=== PATIENT | male | born 1945 | race Two or more races ===

== ENCOUNTER 2018-07-02 18:09 | Observation (INO) | payer OTHER ==
[2018-07-02 19:11] LABS: Absolute Lymphocytes (CBC) 1.3 K/uL (0.7-4.9); Absolute Monocytes 0.9 K/uL (0.1-1.3); Absolute Neutrophil 6.1 K/uL (1.8-8.0); Basophils % 0.1 % (0-1.3); Eosinophils % 0.5 % (0-4.4); Hematocrit 35.5 % (39.6-49.0); Lymphocytes % 15.5 % (15.3-44.8); MPV 6.3 fL (7.6-11.3); Monocytes % 10.8 % (3.3-12.3); RBC Red Blood Cell Count 3.92 M/uL (4.33-5.43)
[2018-07-02] MEDS ORDERED: NA CHLORIDE 0.9% 1,000 ML ONE (19:11)
[2018-07-02] MEDS ORDERED: FAMOTIDINE 20 MG/2 ML VIAL IV ONE (19:11)
[2018-07-02] MEDS ORDERED: ONDANSETRON 4 MG/2 ML VIAL ONE ×2 (19:11→20:46)
[2018-07-02 19:12] LABS: Protime INR 1.02
[2018-07-02 19:26] LABS: ALT/SGPT 24 U/L (12-78); AST/SGOT 25 U/L (15-37); Albumin 4.2 g/dL (3.4-5.0); Alkaline Phosphatase 67 U/L (45-117); BUN Blood Urea Nitrogen 13 mg/dL (7-18); Bicarbonate 22 mmol/L (21-32); Bilirubin Direct 0.2 mg/dL (0-0.2); Bilirubin Total 0.7 mg/dL (0.2-1.0); Glucose Level 152 mg/dL (74-106); Lipase 235 U/L (73-393); Magnesium 2.1 mg/dL (1.8-2.4); NT PRO-BNP 457 pg/mL (<125); Potassium 3.6 mmol/L (3.5-5.1); Protein, Total 7.9 g/dL (6.4-8.2); Sodium Level 121 mmol/L (136-145); Troponin (Emerg Dept Use Only) < 0.02 ng/mL (0.0-0.045)
--- NOTE | 2018-07-02 19:36 | RAD REPORT ---
EXAM DESCRIPTION: Vasile Single View07/02/2018 7:17 pm CLINICAL HISTORY: Chest pain COMPARISON: 2016 FINDINGS: The lungs appear clear of acute infiltrate. The heart is normal size IMPRESSION: No acute abnormalities displayed
--- NOTE | 2018-07-02 20:35 | RAD REPORT ---
EXAM DESCRIPTION: CT - Abdomen Pelvis W Contrast - 07/02/2018 8:12 pm CLINICAL HISTORY: Abdominal pain with vomiting COMPARISON: none. TECHNIQUE: Computed axial tomography of the abdomen pelvis was obtained. 100 cc Isovue-300 was admin istered intravenously. Oral contrast was not requested which limits evaluation of bowel. All CT scans are performed using dose optimization technique as appropriate and may include automated exposure control or mA/KV adjustment according to patient size. FINDINGS: The liver, spleen, pancreas, adrenal and kidneys appear unremarkable. There is no evidence of diverticulitis. The appendix is normal. Spondylosis involves the lumbar spine resulting in spinal stenosis Several gallstones are present. The gallbladder wall does not appear thickened. The bladder is distended . 5 x 1 centimeter fluid collection is present within the iliopsoas muscle IMPRESSION: Cholelithiasis without evidence cholecystitis Bladder distention 5 x 1 centimeter fluid collection within the iliopsoas may represent bursitis.
--- NOTE | 2018-07-02 20:55 | EDPHYS ---
Physician Documentation [facility] Name: Williams Leung Age: 72 yrs Sex: Male : 1945 Arrival Date: 07/02/2018 Time: 18:13 Bed 28 Private MD: Harman Maher R ED Physician Ron Burk HPI: 07/02 18:55 This 72 yrs old Male presents to ER via Unassigned with complaints of Vomiting, cp Weakness. 18:55 The patient presents to the emergency department with vomiting, that is intermittent, 5 cp times today. Onset: The symptoms/episode began/occurred today. Possible causes: started after taking oral [place] for pain. Associated signs and symptoms: Pertinent negatives: abdominal pain, constipation, diarrhea, fever, GI bleeding, chest pain. Severity of symptoms: in the emergency department the symptoms are unchanged despite home interventions. Historical: - Allergies: 18:47 No Known Allergies; rv - Home Meds: 18:47 atorvastatin 20 mg oral tab 1 tab once daily [Active]; metformin 500 mg Oral tab 1 tab rv 2 times per day [Active]; lisinopril 5 mg Oral tab 1 tab once daily [Active]; - PMHx: 18:47 Hypertension; Diabetes - NIDDM; rv - PSHx: 18:47 LEFT KNEE SURGERY; rv - Immunization history:: Adult Immunizations up to date, Flu vaccine is up to date. - Social history:: Smoking status: unknown. - Ebola Screening: : Patient negative for fever greater than or equal to 101.5 degrees Fahrenheit, and additional compatible Ebola Virus Disease symptoms Patient denies exposure to infectious person Patient denies travel to an Ebola-affected area in the 21 days before illness onset. ROS: 19:00 Constitutional: Positive for poor PO intake, Negative for body aches, chills, fever. cp 19:00 Eyes: Negative for injury, pain, redness, and discharge. cp 19:00 ENT: Negative for drainage from ear(s), ear pain, sore throat, difficulty swallowing, difficulty handling secretions. 19:00 Cardiovascular: Negative for chest pain, edema, palpitations. 19:00 Respiratory: Negative for cough, shortness of breath, wheezing. 19:00 Abdomen/GI: Positive for nausea and vomiting, Negative for abdominal pain, diarrhea, constipation, anorexia, black/tarry stool, rectal bleeding. 19:00 Back: Negative for radiated pain. 19:00 : Negative for urinary symptoms. 19:00 Skin: Negative for cellulitis, rash. 19:00 Neuro: Negative for altered mental status, dizziness, headache, weakness. 19:00 All other systems are negative. Exam: 19:10 Constitutional: The patient appears in no acute distress, alert, awake, cp non-diaphoretic, non-toxic, well developed, well nourished, uncomfortable. 19:10 Head/Face: Normocephalic, atraumatic. Eyes: Pupils equal round and reactive to light, cp extra-ocular motions intact. Lids and lashes normal. Conjunctiva and sclera are non-icteric and not injected. Cornea within normal limits. Periorbital areas with no swelling, redness, or edema. 19:10 ENT: External ear(s): are unremarkable, Ear canal(s): are normal, clear, TM's: dullness, bilaterally, Nose: is normal, Mouth: Lips: dry, Oral mucosa: moist, Posterior pharynx: is normal, airway is patent, no erythema, no exudate, Voice: is normal. 19:10 Chest/axilla: Inspection: normal, Palpation: is normal, no crepitus, no tenderness. 19:10 Cardiovascular: Rate: normal, Rhythm: regular, Edema: is not appreciated, JVD: is not appreciated. 19:10 Respiratory: the patient does not display signs of respiratory distress, Respirations: normal, no use of accessory muscles, no retractions, no splinting, no tachypnea, labored breathing, is not present, Breath sounds: are clear throughout, no decreased breath sounds, no stridor, no wheezing. 19:10 Abdomen/GI: Inspection: abdomen appears normal, Bowel sounds: active, all quadrants, Palpation: abdomen is soft and non-tender, in all quadrants, rebound tenderness, is not appreciated, voluntary guarding, is not appreciated, involuntary guarding, is not appreciated. 19:10 Back: pain, that is moderate, ROM is normal. 19:10 Skin: cellulitis, is not appreciated, no rash present. 19:40 ECG was reviewed by the Attending Physician. Vital Signs: 18:47 BP 172 / 86; Pulse 76; Resp 17; Pulse Ox 100% ; Weight 72.57 kg (R); rv 22:07 BP 165 / 78; Pulse 83; Resp 18; Pulse Ox 100% on R/A; rv MDM: 18:28 Patient medically screened. cp 19:00 Differential diagnosis: gastritis, cholecystitis, pancreatitis, appendicitis, viral cp gastroenteritis, gastroenteritis. 20:50 Physician consultation: Harman Maher MD was called at 20:55, was contacted at 20:55, cp regarding admission, to the telemetry unit. patient's condition. 20:50 Data reviewed: vital signs, nurses notes. cp 07/02 18:50 Order name: Basic Metabolic Panel; Complete Time: 19:41 cp 07/02 19:41 Interpretation: Normal except: NA 121; CL 88; GLUC 152; GFR 87. cp 07/02 18:50 Order name: CBC with Diff; Complete Time: 19:41 cp 07/02 19:42 Interpretation: Normal except: RBC 3.92; HGB 12.5; HCT 35.5; MPV 6.3. cp 07/02 18:50 Order name: LFT's; Complete Time: 19:41 cp 07/02 19:43 Interpretation: Normal except: GLOB 3.7. cp 07/02 18:50 Order name: Magnesium; Complete Time: 19:41 cp 07/02 18:50 Order name: NT PRO-BNP; Complete Time: 19:41 cp 07/02 18:50 Order name: PT-INR; Complete Time: 19:41 cp 07/02 18:50 Order name: Troponin (emerg Dept Use Only); Complete Time: 19:41 cp 07/02 18:51 Order name: Lipase; Complete Time: 19:41 cp 07/02 20:35 Order name: Urine Dipstick--Ancillary (enter results) ar5 07/02 20:44 Order name: Glucose, Ancillary Testing; Complete Time: 20:48 EDCO 07/02 20:57 Order name: Urine Osmolality 07/02 20:57 Order name: Osmolality, Serum 07/02 21:05 Order name: Basic Metabolic Panel [facility] 07/02 21:05 Order name: Basic Metabolic Panel [facility] 07/02 18:50 Order name: XRAY Chest (1 view); Complete Time: 19:41 cp 07/02 18:50 Order name: EKG; Complete Time: 18:51 cp 07/02 18:50 Order name: Cardiac monitoring; Complete Time: 19:10 cp 07/02 18:50 Order name: EKG - Nurse/Tech; Complete Time: 19:10 cp 07/02 18:50 Order name: IV Saline Lock; Complete Time: 19:10 cp 07/02 18:50 Order name: Labs collected and sent; Complete Time: 19:10 cp 07/02 19:54 Order name: CT Abd/Pelvis - W/Contrast: no oral contrast; Complete Time: 20:48 cp 07/02 21:05 Order name: Lipase EDMS 07/02 21:05 Order name: Lipase EDMS 07/02 21:06 Order name: Diet - Advance as Tolerated EDMS 07/02 18:50 Order name: O2 Per Protocol; Complete Time: 19:10 cp 07/02 18:50 Order name: O2 Sat Monitoring; Complete Time: 19:10 cp 07/02 18:51 Order name: Urine Dipstick-Ancillary (obtain specimen); Complete Time: 20:39 cp EC:40 Rate is 73 beats/min. Rhythm is regular. TX interval is normal. QRS interval is normal. cp QT interval is normal. Interpreted by me. Reviewed by me. Administered Medications: 19:08 Drug: Pepcid 20 mg Route: IVP; Site: left antecubital; rv 19:08 Drug: Zofran 4 mg Route: IVP; Site: left antecubital; rv 19:50 Drug: NS 0.9% 500 ml Route: IV; Rate: bolus; Site: left antecubital; rv 20:39 Follow up: IV Status: Completed infusion rv 20:38 Drug: NS 0.9% 1000 ml Route: IV; Rate: 100 ml/hr; Site: left antecubital; rv 22:07 Follow up: IV Status: Infusion continued upon admission rv 20:38 Drug: Zofran 4 mg Route: IVP; Site: left antecubital; rv 22:07 Follow up: Response: Nausea is decreased rv 21:01 Drug: fentaNYL (PF) 25 mcg Route: IVP; Site: left antecubital; rv 22:07 Follow up: Response: Pain is decreased rv Disposition: 07/02/18 20:54 Hospitalization ordered by Harman Maher for Observation. Preliminary diagnosis are Nausea and vomiting, Hyponatremia, Dehydration. - Bed requested for Telemetry/MedSurg (observation). - Status is Observation. rv - Condition is Stable. - Problem is new. - Symptoms have improved. UTI on Admission? No Addendum: 07/05/2018 09:26 Co-signature as Attending Physician, Ron Burk MD. g s Signatures: Dispatcher [employer] EDMS Dora Rae RN RN mw Page, Corey, PA PA cp Ron Burk MD MD Porfirio Madsen RN RN rv Corrections: (The following items were deleted from the chart) 07/02 20:54 20:54 Hospitalization Ordered by Harman Maher MD for Observation. Preliminary diagnosis cp is Nausea and vomiting; Hyponatremia. Bed requested for Telemetry/MedSurg (observation). Status is Observation. Condition is Stable. Problem is new. Symptoms have improved. UTI on Admission? No. cp 20:58 20:54 07/02/2018 20:54 Hospitalization Ordered by Harman Maher MD for Observation. mw Preliminary diagnosis is Nausea and vomiting; Hyponatremia; Dehydration. Bed requested for Telemetry/MedSurg (observation). Status is Observation. Condition is Stable. Problem is new. Symptoms have improved. UTI on Admission? No. cp 22:09 20:58 07/02/2018 20:54 Hospitalization Ordered by Harman Maher MD for Observation. rv Preliminary diagnosis is Nausea and vomiting; Hyponatremia; Dehydration. Bed requested for Telemetry/MedSurg (observation). Status is Observation. Condition is Stable. Problem is new. Symptoms have improved. UTI on Admission? No.
--- NOTE | 2018-07-02 20:55 | ER ---
Nurse's Notes [facility] Name: Williams Leung Age: 72 yrs Sex: Male : 1945 Arrival Date: 07/02/2018 Time: 18:13 Bed 28 Private MD: Harman Maher R Diagnosis: Nausea and vomiting;Hyponatremia;Dehydration Presentation: 07/02 18:36 Presenting complaint: Patient states: "I JUST HAD SURGERY A MONTH AGO (LEFT KNEE) AND rv PUT ME ON PHYSICAL THERAPY AFTER. A WEEK AGO I STARTED HAVING BACK PAINS AND THEY PRESCRIBED ME NORCO. I STARTED THE NORCO TODAY, FIRST DOSE I WAS OKAY BUT AFTER THE SECOND DOSE (1400) I STARTED VOMITING TWO HOURS AFTER (1600).". 19:28 Transition of care: patient was not received from another setting of care. Onset of rv symptoms was July 02, 2018 at 14:00. Risk Assessment: Do you want to hurt yourself or someone else? Patient reports no desire to harm self or others. Initial Sepsis Screen: Does the patient meet any 2 criteria? No. Patient's initial sepsis screen is negative. Does the patient have a suspected source of infection? No. Patient's initial sepsis screen is negative. Care prior to arrival: None. 19:28 Acuity: PRASANNA 3 rv 19:28 Method Of Arrival: Wheelchair rv Triage Assessment: 19:29 GI: Reports vomiting. rv Historical: - Allergies: 18:47 No Known Allergies; rv - Home Meds: 18:47 atorvastatin 20 mg oral tab 1 tab once daily [Active]; metformin 500 mg Oral tab 1 tab rv 2 times per day [Active]; lisinopril 5 mg Oral tab 1 tab once daily [Active]; - PMHx: 18:47 Hypertension; Diabetes - NIDDM; rv - PSHx: 18:47 LEFT KNEE SURGERY; rv - Immunization history:: Adult Immunizations up to date, Flu vaccine is up to date. - Social history:: Smoking status: unknown. - Ebola Screening: : Patient negative for fever greater than or equal to 101.5 degrees Fahrenheit, and additional compatible Ebola Virus Disease symptoms Patient denies exposure to infectious person Patient denies travel to an Ebola-affected area in the 21 days before illness onset. Screenin:27 Abuse screen: Denies threats or abuse. Denies injuries from another. Nutritional rv screening: No deficits noted. Tuberculosis screening: No symptoms or risk factors identified. Fall Risk None identified. Assessment: 19:27 General: Appears in no apparent distress. uncomfortable, Behavior is calm, cooperative. rv Pain: Complains of pain in back. Neuro: Level of Consciousness is awake, alert, obeys commands, Oriented to person, place, time, situation. Cardiovascular: Capillary refill < 3 seconds. Respiratory: Airway is patent. GI: Abdomen is flat. : No signs and/or symptoms were reported regarding the genitourinary system. EENT: No signs and/or symptoms were reported regarding the EENT system. Derm: Skin is intact. Musculoskeletal: No signs and/or symptoms reported regarding the musculoskeletal system. Vital Signs: 18:47 BP 172 / 86; Pulse 76; Resp 17; Pulse Ox 100% ; Weight 72.57 kg (R); rv 22:07 BP 165 / 78; Pulse 83; Resp 18; Pulse Ox 100% on R/A; rv ED Course: 18:13 Patient arrived in ED. mr 18:13 Harman Maher MD is Private Physician. mr 18:27 [facility] Connors [facility]. cp 18:27 Ron Burk MD is Attending Physician. cp 19:08 Basic Metabolic Panel Sent. rv 19:08 CBC with Diff Sent. rv 19:08 LFT's Sent. rv 19:08 NT PRO-BNP Sent. rv 19:08 Magnesium Sent. rv 19:09 PT-INR Sent. rv 19:09 Troponin (emerg Dept Use Only) Sent. rv 19:17 XRAY Chest (1 view) In Process Unspecified. EDMS 19:28 Triage completed. rv 19:28 Patient has correct armband on for positive identification. Placed in gown. Bed in low rv position. Call light in reach. Side rails up X 1. Adult w/ patient. quality assurance monitor chassis on. Pulse ox on. NIBP on. 19:29 Patient notified of wait time Patient's private physician notified Emesis basin given. rv EKG completed in triage. Results shown to MD. 19:46 EKG done, by ED staff. lt1 19:[address] sj 20:09 CT completed. Patient tolerated procedure well. Patient moved back from CT. vm2 20:12 CT Abd/Pelvis - W/Contrast: no oral contrast In Process Unspecified. EDMS 20:53 Harman Maher MD is Hospitalizing Provider. cp 22:08 No provider procedures requiring assistance completed. Patient admitted, IV remains in rv place. Administered Medications: 19:08 Drug: Pepcid 20 mg Route: IVP; Site: left antecubital; rv 19:08 Drug: Zofran 4 mg Route: IVP; Site: left antecubital; rv 19:50 Drug: NS 0.9% 500 ml Route: IV; Rate: bolus; Site: left antecubital; rv 20:39 Follow up: IV Status: Completed infusion rv 20:38 Drug: NS 0.9% 1000 ml Route: IV; Rate: 100 ml/hr; Site: left antecubital; rv 22:07 Follow up: IV Status: Infusion continued upon admission rv 20:38 Drug: Zofran 4 mg Route: IVP; Site: left antecubital; rv 22:07 Follow up: Response: Nausea is decreased rv 21:01 Drug: fentaNYL (PF) 25 mcg Route: IVP; Site: left antecubital; rv 22:07 Follow up: Response: Pain is decreased rv Outcome: 20:54 Decision to Hospitalize by Provider. cp 22:08 Admitted to Med/surg accompanied by tech, via stretcher, room 201, with chart, Report rv called to DENISE MARIE 22:08 Condition: good 22:08 Instructed on the need for admit. 22:09 Patient left the ED. rv Signatures: Dispatcher [employer] EDMN Ninfa Woodard Susan sj Page, Corey, PA PA Renetta Murphy [facility] Porfirio Madsen, RN RN rv Miriam Nino 1
[2018-07-02] MEDS ORDERED: D50W 25 GM/50 ML SYRINGE IV PRN (21:00)
[2018-07-02] MEDS ORDERED: ONDANSETRON 4 MG/2 ML VIAL IV PRN (21:00)
[2018-07-02] MEDS ORDERED: GLUCAGON 1 MG/VIAL IM PRN (21:00)
[2018-07-02] MEDS ORDERED: ACETAMINOPHEN 500 MG TAB PO PRN (21:00)
[2018-07-02] MEDS: INSULIN -REGULAR HUMAN 50 UNIT/0.5 ML ML SQ SCH (21:00)
[2018-07-02 21:02] LABS: Urine Blood 1+ (NEG); Urine Glucose TRACE (NEG); Urine Protein NEGATIVE (NEG); Urine Specific Gravity 1.015 (1.005-1.030)
[2018-07-02] MEDS ORDERED: FENTANYL CITR 100 MCG/2 ML ONE (21:08)
[2018-07-02] MEDS: NA CHLORIDE 0.9% 1,000 ML IV SCH (22:30)
[2018-07-03 00:15] VITALS: BMI 23.5
[2018-07-03] MEDS: MORPHINE 4 MG/ML SYR IV PRN ×4 (04:04→23:27)
[2018-07-03 06:18] LABS: Absolute Lymphocytes (CBC) 1.6 K/uL (0.7-4.9); Absolute Monocytes 1.2 K/uL (0.1-1.3); Absolute Neutrophil 6.4 K/uL (1.8-8.0); Basophils % 0.2 % (0-1.3); Eosinophils % 1.2 % (0-4.4); Hematocrit 34.9 % (39.6-49.0); Lymphocytes % 17.4 % (15.3-44.8); MPV 6.4 fL (7.6-11.3); Monocytes % 12.8 % (3.3-12.3); RBC Red Blood Cell Count 3.82 M/uL (4.33-5.43)
[2018-07-03 06:38] LABS: Albumin 3.9 g/dL (3.4-5.0); Bilirubin Direct 0.2 mg/dL (0-0.2); Bilirubin Total 0.7 mg/dL (0.2-1.0); Potassium 4.3 mmol/L (3.5-5.1); Protein, Total 7.5 g/dL (6.4-8.2)
[2018-07-03] MEDS: INSULIN -REGULAR HUMAN 50 UNIT/0.5 ML ML SQ SCH ×4 (07:30→21:00)
[2018-07-03] MEDS: TAMSULOSIN 0.4 MG SR CAP PO SCH (09:09)
[2018-07-03 09:53] VITALS: O2SAT 98
[2018-07-03] MEDS: NA CHLORIDE 0.9% 1,000 ML IV SCH ×2 (11:12→23:31)
--- NOTE | 2018-07-03 15:22 | CON ---
Date of Consultation: 07/03/2018 Reason: Gallstones. History Of Present Illness: The patient is a 72-year-old gentleman, who was having some right lower back pain going down to his right leg associated with some numbness and started taking some ibuprofen , which did not work, so he took some Sachse as he has recently had some left knee replacement surgery done about 6 weeks ago, following which he started having lots of nausea and vomiting and weakness. He came in. He was dehydrated. He was resuscitated. A CAT scan was obtained, and I was consulted. He denies any postprandial pain in the epigastrium or right upper quadrant. Denies any pain betwee n the shoulder blades. No bloating, belching, or heartburn. No diarrhea or constipation. No blood in his stool. No dysuria or hematuria. No sore throat, runny nose, cough, headaches, or dizziness. No chest pain. No fever or chills. Review of Systems: Otherwise unremarkable. Past Medical History: Significant for hypertension and diabetes. Past Surgical History: Bilateral knee replacements, most recent one being approximately 6 weeks ago. Allergies: NO ALLERGIES. Social History: He does not smoke or drink. Family History: Noncontributory. Physical Examination: Vital Signs: Stable. He is afebrile. He is awake, alert, and oriented x3. Head and neck: Cranial nerves 2 through 12 are grossly within normal limits. No neck masses. No ic terus. No JVD. Throat clear. Neck is supple. Chest: Clear. Heart: S1, S2. Abdomen: Soft, nondistended, nontender. Positive bowel sounds. Extremities: Neurovascularly intact. Neuro: Nonfocal. Back: There is some tenderness in the right lower back. Diagnostic Studies: His laboratory data does not show a left shift. His white count is normal. INR is 1.02. Chemistry reviewed. Glucose is slightly elevated at 132. He had a CAT scan of the abdome n and pelvis, which is reviewed, which shows cholelithiasis without evidence of cholecystitis. He villegas s a 5 x 1 cm fluid collection within the iliopsoas muscle, which may represent bursitis. Assessment: A 72-year-old gentleman with right lower back pain with radiculopathy and some numbness and cholelithiasis. The patient does not have any evidence of biliary colic. Recommendations: I would advance his diet to low-fat, low-cholesterol diet, and if his nausea is con trolled. Today, he can be discharged home and follow up with Dr. Oliver, he has an appointment on Fr valencia to see if this bursitis is the source of his discomfort at this time. Should he have biliary co lic in the future, he can follow up with me in my office. Plan of care discussed with the family as well as Dr. Maher. DELON/DELMY Voice ID: [id number] Report ID: [id number]
--- NOTE | 2018-07-03 19:49 | EKG ---
Test Date: 2018-07-02 Test Time: 19:33:59 Books Salesperson: MEASUREMENT RESULTS: Intervals: Rate: 73 GA: 118 QRSD: 74 QT: 398 QTc: 438 [place]: P: 36 GA: 118 QRS: 15 T: 43 INTERPRETIVE STATEMENTS: Normal sinus rhythm Normal ECG Compared to ECG 07/21/2015 07:11:33 No significant changes Electronically Signed On 07-03-18 19:45:55 [employer] by David Ramesh
[2018-07-03] MEDS ORDERED: LISINOPRIL 5 MG TAB PO SCH (21:00)
[2018-07-03] MEDS ORDERED: ATORVASTATIN 20 MG TAB PO SCH (21:00)
[2018-07-03] MEDS: GLUCERNA SHAKE 237 ML CAN PO SCH (21:21)
[2018-07-04] MEDS: MORPHINE 4 MG/ML SYR IV PRN ×3 (03:24→17:54)
--- NOTE | 2018-07-04 05:14 | HP ---
Date of Admission: 07/02/2018 Chief Complaint: Nausea, vomiting, back pain. History Of Present Illness: A 72-year-old male was brought to the emergency room because of multiple complaints including nausea, vomiting, back pain, knee pain. He had evaluation done. He had eviden ce of severe hyponatremia. At this point, the patient is admitted. The patient had a CAT scan done in the emergency room, which showed gallstones. The patient also had a 5-cm cyst in the iliopsoas mu scle. Past Medical History: The patient is known to have a history of osteoarthritis, hypertension, type 2 diabetes. Other problems include hyperlipidemia. Past Surgical History: Positive for left knee surgery. Family History: Diabetes present. Personal History: Nonsmoker. Home Medicines: Lipitor, metformin, lisinopril. Review of Systems: No chest pain or shortness of breath. Physical Examination: General: Revealed a 72-year-old male, alert and oriented. HEENT: Negative. Neck: Supple. JVD negative. Chest: Clear. Heart: Regular. Abdomen: Soft. Extremities: No edema. Laboratory Data: White count normal. Chem profile at admission, sodium was 121, normal BUN and crea tinine. BNP 457. Lipase 235. Assessment: 1.Severe hyponatremia. 2.Nausea and vomiting, causing above. 3.Gallstones. 4.Iliopsoas cyst. 5.Hypertension. 6.Hyperlipidemia. 7.Type 2 diabetes. Plan: The patient's sodium is back to normal. Surgical consult suggested no intervention because of gallstones are present; however, there is no thickening of the gallbladder wall indicative of acute inflammation. The patient is to be seen by Dr. Wheat, who has done the knee surgery. GABY/DELMY Voice ID: [id number]
[2018-07-04] MEDS: INSULIN -REGULAR HUMAN 50 UNIT/0.5 ML ML SQ SCH ×3 (07:30→16:30)
[2018-07-04] MEDS: TAMSULOSIN 0.4 MG SR CAP PO SCH (09:50)
[2018-07-04] MEDS: GLUCERNA SHAKE 237 ML CAN PO SCH (09:52)
[2018-07-04 13:31] VITALS: TEMP 98
[2018-07-04] MEDS: NA CHLORIDE 0.9% 1,000 ML IV SCH (14:00)
--- NOTE | 2018-07-04 17:16 | P.CNS ---
Date of Consult: 07/04/18 Reason for Consult: back pain Chief Complaint: low back pain with radiculopathy. History of Present Illness: complaining of right low back pain with radiculopathy down his right leg, he was worked up for cholelithiasis on this admission. his back pain is severe and affects his ability to work, 8-9/10 now, it was 10/10 yesterday, he has intermittent lateral thigh numbness. Allergies No Known Allergies Allergy (Verified 07/20/15 14:12) Home Medications: Lisinopril [Prinivil] 5 mg PO BEDTIME 07/20/15 Acetaminophen with Codeine [Tylenol with Codeine #4 Tablet] 1 each PO Q4HP PRN # 40 tablet 07/22/15 Atorvastatin Calcium [Lipitor*] 20 mg PO BEDTIME 07/02/18 Tamsulosin [Flomax*] 0.4 mg PO DAILY 07/02/18 - Past Medical/Surgical History Diabetic: Yes -: HTN -: diabetes -: cervical -: lumbar -: thoracic -: arthroscopic sx L knee - Family History Father Medical History: Hypertension Mother Medical History: Diabetes Sister Medical History: Diabetes - Social History Smoking Status: Unknown if ever smoked Alcohol use: Yes CD- Drugs: No Caffeine use: Yes Place of Residence: Home Review of Systems 10-point ROS is otherwise unremarkable General: Weakness Musculoskeletal: Back Pain (right low back pain), Other Physical Examination Temp Pulse Resp BP Pulse Ox 98.0 F 80 16 109/62 99 07/04/18 12:00 07/04/18 12:00 07/04/18 12:00 07/04/18 12:00 07/04/18 12:00 General: Oriented x3, Mild distress HEENT: Atraumatic, Normocephalic Respiratory: Normal air movement Musculoskeletal: Tenderness (sight s.i joint with radiculopathy in right leg to his knee, +slr, DTR+2/4 B, ) Imagings Data: EXAM DESCRIPTION: CT - Abdomen Pelvis W Contrast - 07/02/2018 8:12 pm CLINICAL HISTORY: Abdominal pain with vomiting COMPARISON: none. TECHNIQUE: Computed axial tomography of the abdomen pelvis was obtained. 100 cc Isovue-300 was administered intravenously. Oral contrast was not requested which limits evaluation of bowel. All CT scans are performed using dose optimization technique as appropriate and may include automated exposure control or mA/KV adjustment according to patient size. FINDINGS: The liver, spleen, pancreas, adrenal and kidneys appear unremarkable. There is no evidence of diverticulitis. The appendix is normal. Spondylosis involves the lumbar spine resulting in spinal stenosis Several gallstones are present. The gallbladder wall does not appear thickened. The bladder is distended . 5 x 1 centimeter fluid collection is present within the iliopsoas muscle IMPRESSION: Cholelithiasis without evidence cholecystitis Bladder distention 5 x 1 centimeter fluid collection within the iliopsoas may represent bursitis. Dictated By: Sedrick Benítez MD 07/02/182034 Signed By: Sedrick Benítez MD 07/02/182034 - Problems (1) Spinal stenosis of lumbar region Current Visit: Yes Status: Acute Conclusions/Impression: lumbar spinal stenosis on ct, low back pain with radiculopathy. recomend a medrol dosepack, he has an appointment with Dr Oliver out patient tomorrow
[2018-07-04 17:57] VITALS: BP 146/67
== END 2018-07-04 19:35 | disposition home or self-care (01) ==
LOC: ER 18:09 → 2ND 21:19
PROVIDERS: ADMIT Internal Medicine; ATTEND Internal Medicine
DX: E87.1 Hypo-osmolality and hyponatremia (principal); K80.20 Calculus of gallbladder without cholecystitis without obstruction; M48.061 Spinal stenosis, lumbar region without neurogenic claudication; R11.2 Nausea with vomiting, unspecified; M19.90 Unspecified osteoarthritis, unspecified site; I10 Essential (primary) hypertension; E11.9 Type 2 diabetes mellitus without complications; E78.5 Hyperlipidemia, unspecified; Z96.652 Presence of left artificial knee joint; Z96.653 Presence of artificial knee joint, bilateral
CPT/HCPCS: 36415; 71045; 74177; 80048 ×2; 80076 ×2; 81003; 82962 ×12; 83690 ×2; 83735; 83880; 83930; 83935; 84484; 85025 ×2; 85610; 93005; 96361; 96374; 96375; 97116; 97163; 97530; 99285; G0378 ×2; J2405 ×3; J3010; J7030 ×4; Q9967